=== PATIENT | male | born 1930 | race Caucasian/White ===

== ENCOUNTER 2017-07-25 19:09 | Emergency (ER) | payer MEDICARE, OTHER ==
[~2017-07-25] VITALS: Ht 86.4 cm; Wt 99.8 kg
--- NOTE | ~2017-07-25 | CT52 ---
[facility] A Service of [facility] RADIOLOGY TEXT RESULTS PATIENT: RADHA POPE LOCATION: SED : [birth year] UNIT #: [id number] AGE: [address]: Avril Judd MD SEX: M ORDER DR: [id number] [address] [address] [id number] E MR#: [id number] Acc #: [id number] NAME: RADHA POPE : 1930 SEX: M STUDY DATE/TIME: 07/25/2017 21:06 UNIT: SED ROOM: STUDY DESCRIPTION: CT Cervical Spine Wo Cont Attending Physician: Avril Judd M.D. Ordering Physician: Avril Judd M.D. Primary Care Physician: Robert Manuel M.D. MEDICAL IMAGING REPORT This report is preliminary unless electronic signature is present. EXAM CT cervical spine without contrast HISTORY Neck pain after fall 4 days ago. TECHNIQUE This CT exam was performed with one or more of the following radiation dose reduction techniques: automatic exposure control, adjustment of mA and/or kV according to patient size, and iterative reconstruction. FINDINGS CT cervical spine without contrast demonstrates severe degenerative disc space narrowing at C5-6 and moderately severe disc space narrowing at the C6-7, and moderate disc space narrowing at C2-3 and C3-4. 3 mm anterior subluxation of C4 on C5. Moderate degenerative changes at the anterior junction of C1-2. Multilevel bony hypertrophic changes including broad-based marginal osteophytes resulting in [id number] bilateral bony outlet foraminal narrowing, greater at C5-6 and C6-7. Moderate degenerative facet arthropathy in the upper and lower cervical spine bilaterally. Metal fragments in the right and left cerebellum, in the right mastoid, posterior to C1 on the right, and in the soft tissues of the lateral right face. IMPRESSION 1. No acute findings in the cervical spine. 2. Multilevel degenerative and hypertrophic changes in the cervical spine as described. [id number] multilevel bony outlet foraminal narrowing, greater at C5-6 and C6-7. Dictated by... [facility] A Service of [facility] RADIOLOGY TEXT RESULTS PATIENT: RADHA POPE LOCATION: [facility] : [birth year] UNIT #: [id number] AGE: [address]: Avril Judd MD SEX: M ORDER DR: Warren Dee M.D. THIS IS AN ELECTRONICALLY VERIFIED REPORT Warren Dee M.D. at 07/26/2017 2:21 PM MONTRELL/merritt TD: 07/26/2017 08:50 JOB #: [id number] MEDICAL IMAGING REPORT Page 1 of 1
--- NOTE | ~2017-07-25 | CT71 ---
[facility] A Service of [facility] RADIOLOGY TEXT RESULTS PATIENT: RADHA POPE LOCATION: SED : [birth year] UNIT #: [id number] AGE: [address]: Avril Judd MD SEX: M ORDER DR: [id number] [place] [address] [id number] E MR#: [id number] Acc #: [id number] NAME: RADHA POPE : 1930 SEX: M STUDY DATE/TIME: 07/25/2017 21:06 UNIT: SED ROOM: STUDY DESCRIPTION: CT Head Wo Contrast Attending Physician: Avril Judd M.D. Ordering Physician: Avril Judd M.D. Primary Care Physician: Robert Manuel M.D. MEDICAL IMAGING REPORT This report is preliminary unless electronic signature is present. EXAM CT brain without contrast. HISTORY Posterior headache after fall 4 days ago. TECHNIQUE This CT exam was performed with one or more of the following radiation dose reduction techniques: Automatic exposure control, adjustment of mA and/or kV according to patient size, and iterative reconstruction. 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 Mild generalized cerebral cortical atrophy and mild chronic ischemic changes in the deep white matter bilaterally. No intracranial hemorrhage. No midline shift or extraaxial fluid collection. Mild mucosal thickening in ethmoid air cells bilaterally. IMPRESSION No acute findings. 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 Dictated by... Warren Dee M.D. THIS IS AN ELECTRONICALLY VERIFIED REPORT Warren Dee M.D. at 07/26/2017 2:21 PM DFL/bd [facility] A Service of [facility] RADIOLOGY TEXT RESULTS PAT[facility]: RADHA POPE [id number] [birth year] UNIT #: [id number] AGE: [address]: Avril Judd MD SEX: M ORDER DR: TD: 07/26/2017 08:43 JOB #: [id number] MEDICAL IMAGING REPORT Page 1 of 1
[~2017-07-25 19:09] MED LIST: ACTOS PO; AMITRIPTYLINE H25 MG PO; ASPIRIN PO; ASPIRIN81 M1 PO; CENTRUM SILVER PO; COUMADIN; CRESTOR PO; CRESTOR5 MG PO; DIABETA2.5 MG PO; FAMOTIDINE20 MG PO; FERROUS SULFATE1 TAB PO; FISH OIL 1,0001 CAP PO; FLAGYL PO; GABAPENTIN300 MG PO; GLUCOPHAGE500 MG PO; GLYBURIDE PO; GLYBURIDE2.5 M1 PO; HYTRIN PO; HYTRIN1 M1 DOB; KEFLEX500 M1 PO; LANTUS SOLOSTAR3 ML; LANTUS SOLOSTAR3 ML SQ; LANTUS100 U/ML SUBQ; LISINOPRIL PO; LOPRESSOR PO; LORCET 10/650 T1 TAB PO; METFORMIN PO; METOPROLOL TAR25 MG PO; NEURONTIN PO; PLAVIX PO; VITAMIN D 22000 UNIT PO; VITAMIN D31000 UNI1 PO; ZESTRIL5 MG PO; ZETIA PO
[2017-07-25] MEDS ORDERED: CLOPIDOGREL75 MG PO (19:24)
[2017-07-25] MEDS ORDERED: CRESTOR5 MG PO (20:37)
[2017-07-25] MEDS ORDERED: ZETIA PO (20:37)
[2017-07-25] MEDS ORDERED: GLYBURIDE PO (20:37)
[2017-07-25] MEDS ORDERED: LISINOPRIL PO (20:37)
[2017-07-25] MEDS ORDERED: ASPIRIN81 MG PO (20:38)
[2017-07-25] MEDS ORDERED: GLUCOPHAGE500 MG PO (20:38)
[2017-07-25] MEDS ORDERED: METOPROLOL SUCC25 MG PO (20:38)
[2017-07-25] MEDS ORDERED: FERRO-TIME325 MG PO (20:38)
[2017-07-25] MEDS ORDERED: CENTRUM SILVER1 EAC4 PO (20:38)
[2017-07-25] MEDS ORDERED: FISH OIL PEARL1 EAC1 PO (20:39)
[2017-07-25] MEDS ORDERED: VITAMIN D-32000 UNIT PO (20:39)
[2017-07-25] MEDS ORDERED: LANTUS100 U/ML INJ (20:40)
== END 2017-07-25 22:45 | disposition home or self-care (01) ==
LOC: SED 19:09
DX: S16.1XXA Strain of muscle, fascia and tendon at neck level, initial encounter (principal); I10 Essential (primary) hypertension; E11.9 Type 2 diabetes mellitus without complications; I73.9 Peripheral vascular disease, unspecified; Z79.899 Other long term (current) drug therapy; W07.XXXA Fall from chair, initial encounter
CPT/HCPCS: 70450; 72125; 99284